=== PATIENT | female | born 2000 | race Caucasian/White ===

== ENCOUNTER 2024-01-28 04:13 | Emergency (ER) | payer OTHER ==
[2024-01-28] MEDS ORDERED: Ketorolac Tromethamine 30 MG (1 mL) VIAL ONE (04:39)
[2024-01-28] MEDS ORDERED: Ibuprofen 200 MG TAB ONE (04:59)
[2024-01-28 05:13] LABS: Bacteria/HPF 2+ HPF (None Seen); Bilirubin Negative (Negative); Blood, Urine Unable to Interpret (Negative); CAUTI Indications for Culture Dysuria,urgency,freq; Clarity Clear (Clear); Glucose, Urine (Dipstick) Normal (Negative); Ketone, Urine Negative (Negative); Leukocyte 500 Leu/uL (Negative); Nitrite 1+ (Negative); Protein, Urine (Dipstick) Negative (Neg-Trace); RBC/HPF 0-3 HPF (0-3); Specific Gravity, Urine 1.002 (1.002-1.036); Squamous Epithelial None Seen HPF (0-3); Urobilinogen Normal mg/dL (Less than 2)
[2024-01-28 05:14] LABS: Pregnancy Test - Urine (BHCG) Negative (Negative)
[2024-01-28 05:15] LABS: Pregu Control Background? CLEAR/WHITE (CLR/WHITE); Pregu Control Bar Appear? YES (CONTROL BAR); Specific Gravity 1.002 (1.002-1.036); Urine Culture Reflex No No
== END 2024-01-28 05:38 | disposition home or self-care (01) ==
LOC: ERS 04:13
DX: N39.0 Urinary tract infection, site not specified (principal)
CPT/HCPCS: 81001; 81025; 99283; J1885